=== PATIENT | male | born 1995 | race Caucasian/White ===

== ENCOUNTER 2018-10-12 21:45 | Emergency (ER) | payer MEDICAID ==
[~2018-10-12] VITALS: Ht 182.9 cm; Wt 61.4 kg
--- NOTE | 2018-10-12 22:09 | NUR ---
PT TO ROOM, DENIES SI/HI TO THIS RN, STATES HE HAS SHOULDER PAIN AND HAS HAD A FEW BEERS TODAY. 2 BAGS OF BELONGINGS PLACED IN SAFE KEEPING, SITTER IN VIEW, ROOM SECURE
--- NOTE | 2018-10-12 22:26 | NUR ---
PT REPORT FROM [facility]. THIS RN TO ASSUME CARE OF PT. PT YELLING OUT INTO HALLWAY "IM DONE WITH THIS SHIT....I DONT DESERVE ANY OF THIS." PT CALMED AND REORIENTED TO SITUATION. ROLLER DOORS IN PLACE. SITTER IN HALLWAY.
[2018-10-12 22:49] LABS: BASOPHILS # (AUTO) 0.05 x10^3/uL (0-0.1); BASOPHILS % (AUTO) 1 % (0-1); EOSINOPHILS # (AUTO) 0.17 x10^3/uL (0-0.4); EOSINOPHILS % (AUTO) 3 % (1-7); LYMPHOCYTES # (AUTO) 3.16 x10^3/uL (1-3.4); LYMPHOCYTES % (AUTO) 46 % (22-44); MD NO; MEAN CORPUSCULAR HEMOGLOBIN 31.7 pg (27.5-34.5); MEAN CORPUSCULAR HGB CONC 33.9 g/dL (33.2-36.2); MEAN CORPUSCULAR VOLUME 93.4 fL (81-97); MEAN PLATELET VOLUME 7.2 fL (7.4-10.4); MONOCYTES # (AUTO) 0.55 x10^3/uL (0.2-0.8); MONOCYTES % (AUTO) 8 % (2-9); NEUTROPHILS # (AUTO) 2.97 x10^3/uL (1.8-6.8); NEUTROPHILS % (AUTO) 43 % (42-75); PLATELET COUNT 471 x10^3/uL (130-400); RED BLOOD COUNT 5.03 x10^6/uL (4.38-5.82); RED CELL DISTRIBUTION WIDTH 13.3 % (9.4-14.8)
[2018-10-12 22:57] LABS: AMPHETAMINE SCREEN, URINE Negative (Negative); BARBITURATE SCREEN, URINE Negative (Negative); BENZODIAZEPINE SCREEN, URINE Negative (Negative); CANNABINOID SCREEN, URINE Positive (Negative); COCAINE SCREEN, URINE Negative (Negative); METHADONE SCREEN, URINE Negative (Negative); OPIATE SCREEN, URINE Negative (Negative)
[2018-10-12 22:58] LABS: ALBUMIN 4.5 g/dL (3.4-5.0); ANION GAP 8 mmol/L (5-15); CALCIUM 8.5 mg/dL (8.5-10.1); CHLORIDE 112 mmol/L (98-107); SALICYLATE LEVEL 2.1 mg/dL (2.8-20.0)
[2018-10-12 23:01] LABS: ALANINE AMINOTRANSFERASE 27 U/L (12-78); ALKALINE PHOSPHATASE 91 U/L (45-117); BILIRUBIN,TOTAL 0.1 mg/dL (0.2-1.0); CREATININE 0.88 mg/dL (0.7-1.3); TOTAL PROTEIN 7.9 g/dL (6.4-8.2)
[2018-10-12 23:05] LABS: ACETAMINOPHEN < 2 mcg/mL (10-30)
--- NOTE | 2018-10-13 00:25 | NUR ---
PT YELLING AT STUFF AND CURSING STAFF OUT AND SCREAMING INTO HALLWAY. PT CONTINUOUSLY EDUCATED TO NOT DO THAT. PT AGREES AND THEN SCREAMS OUT INTO HALLWAY AND YELLS AT STAFF.
--- NOTE | 2018-10-13 01:52 | NUR ---
PT SLEEPING COMFORTABLY ON GURNEY. RR EVEN AND UNLABORED. NADN. NO IMMEDIATE NEEDS. ROLLER DOORS IN PLACE. SITTER IN HALLWAY.
--- NOTE | 2018-10-13 03:17 | NUR ---
PT SLEEPING COMFORTABLY ON GURNEY. RR EVEN AND UNLABORED. NADN. NO IMMEDIATE NEEDS. ROLLER DOORS IN PLACE. SITTER IN HALLWAY.
--- NOTE | 2018-10-13 03:40 | NUR ---
THIS RN PROMPTED PT FOR BREATHALYZER, PT STATES "NAH DUPUJA, IM STILL FUCKIN DRUNK... SO WHAT?"
--- NOTE | 2018-10-13 04:17 | NUR ---
PT SLEEPING COMFORTABLY ON GURNEY. RR EVEN AND UNLABORED. NADN. NO IMMEDIATE NEEDS. ROLLER DOORS IN PLACE. SITTER IN HALLWAY.
--- NOTE | 2018-10-13 05:11 | NUR ---
PT SLEEPING COMFORTABLY ON GURNEY. RR EVEN AND UNLABORED. NADN. NO IMMEDIATE NEEDS. ROLLER DOORS IN PLACE. SITTER IN HALLWAY.
--- NOTE | 2018-10-13 06:29 | NUR ---
PT SLEEPING COMFORTABLY ON GURNEY. RR EVEN AND UNLABORED. NADN. NO IMMEDIATE NEEDS. ROLLER DOORS IN PLACE. SITTER IN HALLWAY.
--- NOTE | 2018-10-13 07:01 | NUR ---
PT REPORT TO [facility].
--- NOTE | 2018-10-13 07:30 | NUR ---
LAT ENTRY - PT HANDOFF REPORT FROM [facility]. PT RESTING ON PRAVINWELDON, ASSESSMNET COMPLETED. PT DENIES ANY THOUGHTS OF SI/HI OR ANY PLAN AT THIS TIME, STATES HE HAS HAD A HX OF SI AND DEPRESSION. STATES CURRENTLY NOT TAKING ANY MEDS BECAUSE HE RAN OUT. PT STATED HE WAS ANGRY AND INTOXICATED LAST NIGHT BECAUSE HE IS TO GO [place] [facility] [place] APPROX 2 MONTHS. PT A&OX4.
--- NOTE | 2018-10-13 08:19 | NUR ---
PT PROVIDED WITH SECURITY DIET TRAY.
--- NOTE | 2018-10-13 08:50 | NUR ---
PT RESTING ON GUERVIN. NADN. VSS. RESP EVEN AND UNLABORED. SITTER IN PLACE WITH EYES ON.
--- NOTE | 2018-10-13 11:03 | NUR ---
PT RESTING ON MARILYN. PAMELA. SITTER IN PLACE WITH EYES ON PT.
--- NOTE | 2018-10-13 11:45 | NUR ---
TELEPSYCH CONSULT IN PROGRESS.
[2018-10-13 12:29] VITALS: BP 128/67
--- NOTE | 2018-10-13 12:30 | NUR ---
PT Addendum: 10/13/18 at 1230 by JHALL Patient/Caregiver given discharge instructions and they have confirmed that they understand the instructions. Patient ambulatory with steady gait. PT CONTINUES TO DENY SI/HI. A&OX4. ALL PERSONAL BELONGINGS RETURNED TO PT. PT PROVIDED WITH TAXI VOUCHER FOR SAFE TRANSPORT HOME.
== END 2018-10-13 12:33 | disposition home or self-care (01) ==
LOC: ED 21:46
DX: F33.9 Major depressive disorder, recurrent, unspecified (principal); F10.120 Alcohol abuse with intoxication, uncomplicated
CPT/HCPCS: 36415; 80053; 80307; 80329; 85025; 99284; G0480

== ENCOUNTER 2019-03-23 16:13 | Emergency (ER) | payer MEDICAID | END 2019-03-23 16:36 | disposition left against medical advice (07) | LOC: ED 16:30 | DX: R21 Rash and other nonspecific skin eruption (principal); Z53.21 Procedure and treatment not carried out due to patient leaving prior to being seen by health care provider ==

== ENCOUNTER 2019-03-23 20:06 | Emergency (ER) | payer MEDICAID ==
[~2019-03-23] VITALS: Ht 182.9 cm; Wt 60.2 kg
[2019-03-23] MEDS ORDERED: DIPHENHYDRAMINE 50 MG CAPSULE ONE (20:29)
[2019-03-23] MEDS ORDERED: FAMOTIDINE 20 MG TABLET ONE (20:29)
[2019-03-23] MEDS ORDERED: DEXAMETHASONE 4 MG/ML, 5ML ONE (20:29)
[2019-03-23] MEDS ORDERED: DEXAMETHASONE 4 MG/ML, 1ML PO ONE (20:30)
[2019-03-23] MEDS ORDERED: LORazepam 1MG TABLET ONE (20:30)
[2019-03-23] MEDS ORDERED: FAMOTIDINE 20 MG TABLET PO ONE (20:30)
[2019-03-23] MEDS ORDERED: DIPHENHYDRAMINE 25 MG CAPSULE PO ONE (20:30)
[2019-03-23] MEDS ORDERED: LORazepam 1MG TABLET PO ONE (20:30)
--- NOTE | 2019-03-23 21:04 | NUR ---
Assumed care of pt. Pt resting on remedios, family at bedside. No acute distress noted at this time.
[2019-03-23 21:42] VITALS: BP 123/78
--- NOTE | 2019-03-23 21:42 | NUR ---
ASSUMED CARE OF PT FOR DISCHARGE. PT UP AMBULATORY AND STABLE ON FEET.
== END 2019-03-23 21:44 | disposition home or self-care (01) ==
LOC: ED 21:19
DX: L50.9 Urticaria, unspecified (principal); F10.10 Alcohol abuse, uncomplicated
CPT/HCPCS: 99284; J1100; Q0163